=== PATIENT | female | born 1945 | race Caucasian/White ===

== ENCOUNTER 2023-05-31 06:28 | Day surgery (SDC) | payer BC, MEDICARE ==
[2023-05-31] VITALS (17 sets, daily range): BP systolic 142–177; BP diastolic 70–93; PULSE 73–94; RESP 12–16; TEMP 98.5; O2SAT 91–99
[~2023-05-31] VITALS: Ht 165.1 cm; Wt 98.3 kg
[2023-05-31] MEDS ORDERED: normal saline 1000ml 1,000 ML IV PRN (06:45)
[2023-05-31] MEDS ORDERED: AMLO5TAB16 PO (07:39)
[2023-05-31] MEDS ORDERED: ESTR10TA9 (07:39)
[2023-05-31] MEDS ORDERED: OXYB5TAB17 PO (07:39)
[2023-05-31] MEDS ORDERED: METO-411 PO (07:39)
[2023-05-31] MEDS ORDERED: ESZO1TAB13 PO (07:39)
[2023-05-31] MEDS ORDERED: IBAN150T21 PO (07:45)
[2023-05-31] MEDS ORDERED: NITR100C11 PO (07:45)
[2023-05-31] MEDS ORDERED: PANT40TA54 PO (07:45)
[2023-05-31] MEDS ORDERED: OLME40TA18 PO (07:45)
[2023-05-31] MEDS ORDERED: ESCI20TA39 PO (07:45)
[2023-05-31] MEDS ORDERED: LOTE5DRO (07:45)
[2023-05-31 08:26] LABS: BASOPHILS % (AUTO) 0.8 % (0-1); EOSINOPHILS # (AUTO) 0.2 X10'3 (0-0.9); EOSINOPHILS % (AUTO) 5.2 % (0-6); HEMATOCRIT 33.6 % (35.0-45.0); HEMOGLOBIN 11.1 g/dl (12.0-16.0); LYMPHOCYTES # (AUTO) 1.7 X10'3 (1.1-4.8); LYMPHOCYTES % (AUTO) 36.6 % (21-51); MEAN CORPUSCULAR HEMOGLOBIN 28.9 PG (27.0-31.0); MEAN CORPUSCULAR HGB CONC 32.9 g/dL (33.0-36.5); MEAN CORPUSCULAR VOLUME 87.9 FL (78-98); MEAN PLATELET VOLUME 8.6 FL (7.4-10.4); MONOCYTES # (AUTO) 0.5 X10'3 (0-0.9); MONOCYTES % (AUTO) 11.6 % (2-12); NEUTROPHILS # (AUTO) 2.1 X10'3 (1.8-7.7); NEUTROPHILS % (AUTO) 45.8 % (42-75); PLATELET COUNT 196 X10'3 (140-440); RED BLOOD COUNT 3.83 X10'6 (4.20-5.60); RED CELL DISTRIBUTION WIDTH 18.5 % (11.5-14.5); WHITE BLOOD COUNT 4.6 X10'3 (4.5-11.0)
[2023-05-31 08:28] LABS: PROTHROMBIN TIME 11.1 SECONDS (9.0-12.0)
[2023-05-31 08:43] LABS: ALBUMIN 3.2 G/DL (3.4-5.0); ANION GAP 8 (8-16); BLOOD UREA NITROGEN 25 MG/DL (7-18); BUN/CREATININE RATIO 39.7 (10.0-20.0); CALCIUM 9.2 MG/DL (8.5-10.1); CHLORIDE 105 MMOL/L (99-107); CREATININE 0.63 MG/DL (0.40-0.90); GLUCOSE 96 MG/DL (70-104); POTASSIUM 3.1 MMOL/L (3.5-5.1); SODIUM 142 MMOL/L (135-145); TOTAL CARBON DIOXIDE 28.7 MMOL/L (24-32); eCRCL 67 ML/MIN; eGFR > 90 ML/MIN
[2023-05-31] MEDS ORDERED: fentaNYL/PF 50MCG/1 ML 2ML syringe ONE (09:48)
[2023-05-31] MEDS ORDERED: midazolam 1 mg/ML 2ml injection ONE (09:48)
[2023-05-31] MEDS ORDERED: gelatin sponge, absorbable (Gelfoam 12-7MM) sponge TP ONE (10:25)
== END 2023-05-31 15:00 | disposition home or self-care (01) ==
LOC: SSTAY O 06:28
PROVIDERS: ATTEND Radiology Vascular & Interventional Radiology
DX: D49.512 Neoplasm of unspecified behavior of left kidney (principal); N28.89 Other specified disorders of kidney and ureter; I10 Essential (primary) hypertension; G47.30 Sleep apnea, unspecified; M19.90 Unspecified osteoarthritis, unspecified site; Z87.440 Personal history of urinary (tract) infections; Z87.442 Personal history of urinary calculi; Z87.891 Personal history of nicotine dependence; Z79.899 Other long term (current) drug therapy; Z90.710 Acquired absence of both cervix and uterus; Z98.890 Other specified postprocedural states; Z88.0 Allergy status to penicillin; Z88.5 Allergy status to narcotic agent
CPT/HCPCS: 36415; 50200; 77012; 80048; 85025; 85610; 99152; 99153; J2250; J3010; J7030; A4615

== ENCOUNTER 2025-03-12 11:07 | Inpatient (IN) | payer OTHER, MEDICARE, BC ==
[~2025-03-12] VITALS: Ht 162.6 cm; Wt 105.9 kg
[2025-03-12] VITALS (14 sets, daily range): BP systolic 102–138; BP diastolic 49–71; PULSE 64–79; RESP 14–21; TEMP 98.2–99.2; O2SAT 93–100
[~2025-03-12 11:07] MED LIST: AMLO5TAB16 PO; ESCI20TA39 PO; ESTR10TA9; ESZO1TAB13 PO; IBAN150T21 PO; LOTE5DRO; METO-411 PO; NITR100C11 PO; OLME40TA18 PO; OXYB5TAB21 PO; PANT40TA54 PO
--- NOTE | 2025-03-12 12:49 | Physician Documentation ---
History of Present Illness General Chief Complaint: See Chief Complaint Stated Complaint: POSS GI BLEED Time Seen by MD: 11:25 History of Present Illness Initial Comments This is a 79-year-old female who currently resides at [facility], was dropped off to us by medical transport in front of the emergency department. She tells me that she is here for EGD and she has an appointment at 11:00 a.m.. It is currently 1243. We have contacted [facility] the facility and turns out that patient can not have the EGD done on an outpatient basis due to insurance reasons. Apparently the patient had an appointment for outpatient EGD which was canceled due to insurance non coverage. Therefore they sent her here to be admitted and have EGD done on the inpatient basis. At the time of my examination patient has not no new somatic complaints. Records from the outside facility reviewed. The patient was sent with the history and physical examination note from [facility]. According to that note patient is a 79-year-old female with a past medical history of heart failure with a reduced ejection fraction with a EF of 40-45%, history of hypotension, hyperlipidemia, AFib with a Eliquis, depression, obesity, chronic hypoxic respiratory failure and supposed to be on 2 L with a baseline, presented for evaluation of generalized weakness. At the time of presentation to [facility] 02/18/2025, the patient has been feeling weak for three days. She presented to the ER because she was not able to get off the toilet. The patient has a chronic lymphedema. Her workup of the time showed anemia with hemoglobin of 7.8. BNP was elevated at 3700. Medication Reconciliation Allergies: Coded Allergies: Penicillins (Verified Allergy, Unknown, 05/31/23) codeine (Verified Allergy, Unknown, 05/31/23) Scheduled Amlodipine Besylate (Amlodipine Besylate), 1 TAB PO DAILY, (Reported) Escitalopram Oxalate (Escitalopram Oxalate), 1 TAB PO DAILY, (Reported) Eszopiclone (Eszopiclone), 1 TAB PO HS, (Reported) Ibandronate Sodium (Ibandronate Sodium), 1 TAB PO Q30D, (Reported) Metoprolol Succinate (Metoprolol Succinate), 1 TAB PO DAILY, (Reported) Nitrofurantoin/Nitrofuran Mac (Nitrofurantoin [place]-Mcr 100 Mg), 1 CAP PO DAILY, (Reported) Olmesartan Medoxomil (Olmesartan Medoxomil), 1 TAB PO DAILY, (Reported) Oxybutynin Chloride (Oxybutynin Chloride), 1 TAB PO BID, (Reported) Pantoprazole Sodium (Pantoprazole Sodium), 1 TAB PO DAILY, (Reported) Miscellaneous Medications Estradiol (Estradiol), (Reported) Loteprednol Etabonate (Loteprednol Etabonate), (Reported) Review of Systems ROS 10 point review of systems was performed and unless noted above in HPI is negative for acute process/complaint. Physical Exam Physical Exam Vital Signs: Temperature: 98.3, Source: Oral, Heart Rate: 65, Respiratory Rate: 16, BP: 105/45, Pulse Oximetry: 99, Weight: 105.910 Oxygen Flow Rate: 2.0 Physical Exam GENERAL: Awake, alert, oriented, GCS 15, no apparent distress, pale and chron ically ill appearing, answers questions, follows commands appropriately. Examined in bed 14. HEENT: Atraumatic, normocephalic, pupils equal, extraocular muscles intact, sclerae anicteric, mucus membranes moist, oropharynx is clear, no stridor. NECK: supple, full active range of motion, trachea midline, no thyromegaly, no lymphadenopathy, no JVD. CARDIOVASCULAR: Irregularly irregular rate/rhythm, no murmurs/gallops/rubs, Pulses are 2+ in all extremities and symmetric. Capillary refill less than 2 seconds. PULMONARY: Nonlabored, for air movement ,no respiratory distress, speaking in full sentences, markedly decreased breath sounds on the left side, no wheezing, no ronchi, right rales, no accessory muscle use. GASTROINTESTINAL: Soft, non-tender, non-distended, normal active bowel sounds, no organomegaly, no pulsatile masses, no CVA tenderness. NEUROLOGIC: Lucid with normal mental status. Normal facial symmetry. Moves all extremities symmetrically and with purpose. No truncal ataxia. Speech is fluid without evidence of dysarthria or aphasia, no focal deficits appreciated. MUSCULOSKELETAL: There is full range of motion of all extremities. There is no joint pain or joint swelling or joint erythema. There is no muscle pain or tenderness or swelling. EXTREMITIES: warm, well-perfused, no cyanosis, no clubbing, no edema, no acute deformities. Skin: warm, dry, no rashes or lesions, no jaundice, no petechiae orpurpura. No ecchymosis. PSYCHIATRIC: Normal affect, normal insight, normal concentration. Focused exam: [] Progress Results/Orders Results/Orders Orders - CAMILO WILLIS DO Chest,Single View (03/12/25 12:50) Monitor (03/12/25 12:50) Saline Lock (03/12/25 12:50) Hs Troponin I W Calculations (03/12/25 14:50) Culture Blood (03/12/25 13:40) Completed Orders - CAMILO WILLIS DO Electrocardiogram (03/12/25 12:50) Cbc/Diff (03/12/25 12:50) Pt Inr (03/12/25 12:50) PTT (03/12/25 12:50) Chest,Single View (03/12/25 12:50) PBNP (03/12/25 12:50) MG (03/12/25 12:50) CMP (03/12/25 12:50) Hs Troponin I W Calculations (03/12/25 12:50) C-Reactive Protein (03/12/25 12:57) ESR (03/12/25 12:57) Lacticsepsis (03/12/25 13:40) Man Diff (03/12/25 13:04) Procalcitonin (03/12/25 14:10) Vital Signs 03/12/25 03/12/25 03/12/25 11:13 13:21 13:27 Temp 98.3 Pulse 65 65 Resp 16 15 B/P (MAP) 105/45 118/52 (74) Pulse Ox 99 97 96 O2 Delivery Nasal Cannula* O2 Flow Rate 2.0 2 2.0 FiO2 28 Laboratory Tests Test 03/12/25 13:04 White Blood Count 3.9 L Red Blood Count 3.21 L Hemoglobin 8.7 L Hematocrit 27.1 L Mean Corpuscular Volume 84.2 Mean Corpuscular Hemoglobin 27.0 Mean Corpuscular Hemoglobin Concent 32.1 L Red Cell Distribution Width 17.6 H Platelet Count 84 L Mean Platelet Volume 9.7 Neutrophils (%) (Auto) 65.0 Lymphocytes (%) (Auto) 16.7 L Monocytes (%) (Auto) 16.0 H Eosinophils (%) (Auto) 1.6 Basophils (%) (Auto) 0.7 Neutrophils # (Auto) 2.5 Lymphocytes # (Auto) 0.6 L Monocytes # (Auto) 0.6 Eosinophils # (Auto) 0.1 Basophils # (Auto) 0.0 CBC Comment Differential Total Cells Counted 100 Neutrophils % (Manual) 62.0 Lymphocytes % (Manual) 19.0 L Monocytes % (Manual) 18.0 H Eosinophils % (Manual) 1.0 Platelet Estimate Decreased Red Blood Cell Morphology Perf Hypochromasia Basophilic Stippling Anisocytosis 1+ Erythrocyte Sedimentation Rate 32 H Prothrombin Time 12.4 H INR International Normalized Ratio 1.2 Activated Partial Thromboplast Time 27 Coagulation Comments Sodium Level 147 H Potassium Level 4.0 Chloride Level 107 Carbon Dioxide Level 35.0 H Anion Gap 5 L Blood Urea Nitrogen 62 H Creatinine 1.04 H Estimated GFR/1.73 m2 51 BUN/Creatinine Ratio 59.6 H Glucose Level 90 Lactic Acid Level 0.9 Calcium Level 8.6 Magnesium Level 2.2 Total Bilirubin 1.0 Aspartate Amino Transf (AST/SGOT) 14 Alanine Aminotransferase (ALT/SGPT) 15 Alkaline Phosphatase 57 Troponin I High Sensitivity 67 *H C-Reactive Protein 0.58 H Pro-B-Type Natriuretic Peptide 5471 H Total Protein 6.6 Albumin 2.8 L Globulin 3.8 Albumin/Globulin Ratio 0.7 L Procalcitonin < 0.05 Chemistry Comments Medical Decision Making Additional information obtaine: old records Findings Facility Status: ED [facility], [facility] process The plan was discussed with the patient, who demonstrates clear understanding of the plan and is in agreement with the plan unless otherwise noted in the chart. All questions have been answered, all concerns were addressed unless otherwise documented. I was available throughout their ED stay for frequent reassessment and questions. Differential Diagnoses (considered and possible or likely): [Anemia secondary to chronic disease versus anemia secondary to GI bleed the, CHF exacerbation, hypoxia-chronic, less likely ACS, less likely dehydration, less likely electrolyte derangement.] ??Differential Diagnoses (considered and unlikely, not requiring evaluation currently): [No evidence of trauma lateralizing signs] MDM Data Please see HPI for the following: Independent Historians and external Records Review. Historian: [Patient] Independent Historians: ?[Record review] Medication Management: [Reviewed medication list] Social History and determinants: [Reviewed] Please see the body of the note for the following: Any independent interpretations of ECG, imaging studies. All vitals signs/haemodynamics, ordered tests were independently reviewed and interpreted by myself. Nursing triage complaint and vitals reviewed, additional nursing notes were reviewed as available and I agree unless otherwise noted or documented in contradiction in the chart Vital Signs: Independently reviewed Labs: Independently interpreted Imaging: Independently interpreted Old Medical Records: Independently reviewed, see HPI for relevant summary and information Pulse Oximetry: [97% on baseline 2 L] interpreted as [baseline] by me [Manager Spanish: [Regular Rate, Regular rhythm, no ectopy, NSR] reviewed and interpreted by me] Additionally notably showing: [Hemodynamics reviewed. The patient is doing well on her baseline 2 L nasal cannula. There was no evidence of hypoxia, there was not evidence of tachycardia or hypotension. Her blood pressure is however are soft. There is a leukopenia of 3.9, no neutrophilic predominance. Anemia of 8.7, thrombocytopenia of 84. ESR is elevated. Coagulation panel is unremarkable. Metabolic panel notable for elevated troponin, elevated BNP concerning for CHF exacerbation as well as BUN creatinine ratio of almost 60 concerning for upper GI bleed. Procalcitonin is normal. Lactic acid is normal. Chest x-ray is notable for an entire left lung white out.] Tests considered but not ordered include: [Advanced imaging, echocardiogram, can be done on an inpatient basis] Social Determinants of Health Impact: Patient was evaluated in [facility] [place] to healthcare due to below par ratio of patient to medical providers. [] Comorbid Conditions Impacting Present Evaluation and Care/Treatment: [Multiple including known CHF, known anemia] Management Discussions with other Healthcare Providers: [Hospitalist regarding admission] Treatment and Disposition Medication Management (Given or considered): [Antibiotics]. See EMR for details Consideration for Hospitalization/Escalation/Deescalation of Care: Admission for observation has been considered, is necessary for further management of her left lung white out ?ED Course:?[Date: Mar 12, 2025 Time: 15:02 the GI crew showed up to take patient for EGD. ] ?Shared decision making:?[] Code status:?FULL Please see the full Electronic Medical Record for full details of nursing documentation, medications list, other records of complete past medical history and conditions, vital signs, laboratory studies, and any radiologic study interpretations by radiologists. Portions of this note were completed using [employer] dictation software and as a result there may exist minor errors in spelling. I have reviewed elements of past family and social history and agree as included in note. Differential Diagnosis See the body of main note Departure Disposition: ADMITTED INPATIENT Admitted to Inpatient Unit: to hospitalist Impression: Primary Impression: Upper GI bleed Additional Impressions: Anemia Pneumonia involving left lung Condition: Guarded Referrals: NO PRIMARY CARE PROVIDER (PCP) Signature Scribe Signature: No scribe Attestation: Date: Mar 12, 2025 Time: 12:49 This note accurately reflects clinical decisions, work performed by myself, DO LAZARO Shipman NICHOLAS M DO Mar 12, 2025 12:49
--- NOTE | 2025-03-12 13:06 | ELECTROCARDIOGRAPH REPORT ---
[facility] Test Date: 2025-03-12 Test Time: 13:04:14 Pat Name: PAMELA GIORDANO Department: [facility]-ER Patient ID: [facility]-[id number] Room: [place] [address] Gender: F Structural Steel Painter: : 1945 Requested By: CAMILO WILLIS Order Number: [id number] Reading MD: Dr. Kye Driver Measurements Intervals [place] Rate: 78 P: 0 DE: 0 QRS: -54 QRSD: 174 T: 83 QT: 451 QTc: 514 Interpretive Statements Atrial fibrillation RBBB and LAFB Electronically Signed On 03-13-2025 18:48:[address] Kye Driver Please click the below link to view image of tracing.
--- NOTE | 2025-03-12 13:16 | RADIOLOGY REPORT ---
DI CHEST,SINGLE VIEW, HISTORY: Weakness COMPARISON: None None TECHNICAL DATA: 1 view of the chest was obtained. FINDINGS: Lines and tubes: None Cardiomediastinal silhouette: Indistinct. Pulmonary vasculature: Prominent Lung expansion: normal Lung airspace: Complete opacification of the left hemithorax. Lung interstitium: normal Pleura: Bilateral pleural effusions. Pneumothorax: no Bones: Unremarkable Other: no IMPRESSION: Complete opacification of the left hemithorax. Bilateral pleural effusions.
[2025-03-12 13:30] LABS: APTT 27 SECONDS (22-32); INR 1.2 INR
[2025-03-12 13:40] LABS: MEAN PLATELET VOLUME 9.7 FL (7.4-10.4); RED CELL DISTRIBUTION WIDTH 17.6 % (11.5-14.5)
[2025-03-12 13:56] LABS: CREATININE 1.04 MG/DL (0.40-0.90); PRO BRAIN NATRIURETIC PEPTIDE 5471 PG/ML (0-450); TOTAL CARBON DIOXIDE 35.0 MMOL/L (24-32); eCRCL 38 ML/MIN; eGFR 51 ML/MIN
[2025-03-12 14:03] LABS: EOSINOPHILS % (MANUAL) 1.0 % (0-6); LYMPHOCYTES % (MANUAL) 19.0 % (21-51); MONOCYTES % (MANUAL) 18.0 % (2-12); NEUTROPHILS % (MANUAL) 62.0 % (42-75); PLATELET ESTIMATE DECREASED
[2025-03-12] MEDS ORDERED: magnesium sulf-water 2g/50mL 50 ML IV PRN (15:30)
[2025-03-12] MEDS ORDERED: potassium Cl 40MEQ/1/2NS 520ml 520 ML IV PRN (15:30)
[2025-03-12] MEDS ORDERED: bisacodyl 10mg suppository rectal RC PRN (15:30)
[2025-03-12] MEDS ORDERED: potassium Cl 20 mEq SR tablet PO PRN (15:30)
[2025-03-12] MEDS ORDERED: magnesium Cl slow-release 64mg tablet PO PRN (15:30)
[2025-03-12] MEDS ORDERED: magnesium sulf-water 4G/100mL 100 ML IV PRN (15:30)
[2025-03-12] MEDS ORDERED: ondansetron/PF 4mg/2ml inj IV PRN (15:30)
[2025-03-12] MEDS ORDERED: magnesium hydroxide 30ml (MOM) UD suspension PO PRN (15:30)
[2025-03-12] MEDS ORDERED: propofol inj 20 ML IV ONE (16:01)
[2025-03-12] MEDS: levoFLOXACIN-Levaquin 750MG/D5 150 ML IV ONE (18:50)
--- NOTE | 2025-03-12 19:13 | HISTORY AND PHYSICAL ---
History & Physical Providers to CC ~ History of Present Illness Reason for Admit\\Complaint: GI bleeding History of Present Illness This is a 79-year-old female who currently resides at [facility] nursing [facility], was dropped off by medical transport in front of the emergency department . As per ER records " We have contacted [facility] the facility and turns out that patient can not have the EGD done on an outpatient basis due to insurance reasons. Apparently the patient had an appointment for outpatient EGD which was canceled due to insurance non coverage. Therefore they sent her here to be admitted and have EGD done on the inpatient basis. " I evaluated the patient in recovery room after EGD. Dr. Smallwood did EGD for her. And as per patient GI specialist mentioned nothing significant they found in EGD in she will plan for colonoscopy in a.m. patient mentioned off and on she bleeds from her hemorrhoids and she also has heartburn history. Patient denied any nausea vomiting or abdominal pain.Further workup done in ER x-ray chest showed Complete opacification of the left hemithorax. Bilateral pleural effusions. Patient use 2 L of oxygen at home. Patient denied any worsening of her breathing. No chest pain. Hospitalist service contacted for admission and further management Allergies: Coded Allergies: Penicillins (Verified Allergy, Unknown, 05/31/23) codeine (Verified Allergy, Unknown, 05/31/23) Home Medications Home Medications Active Reported Escitalopram Oxalate 20 Mg Tablet 1 Tab PO DAILY Pantoprazole Sodium 40 Mg Tablet.dr 1 Tab PO DAILY Loteprednol Etabonate 0.5 % Drops.susp Nitrofurantoin [place]-Mcr 100 Mg (Nitrofurantoin/Nitrofuran Mac) 100 Mg Capsule 1 Cap PO DAILY Ibandronate Sodium 150 Mg Tablet 1 Tab PO Q30D Olmesartan Medoxomil 40 Mg Tablet 1 Tab PO DAILY Eszopiclone 1 Mg Tablet 1 Tab PO HS Metoprolol Succinate 100 Mg Tab.sr.24h 1 Tab PO DAILY Amlodipine Besylate 5 Mg Tablet 1 Tab PO DAILY Oxybutynin Chloride 5 Mg Tablet 1 Tab PO BID Estradiol 10 Mcg Tablet Past Medical History Past Medical History Congestive heart failure EF 40-45%, AFib rate controlled, chronic respiratory failure on 2 L at home, chronic lymphedema Past Surgical History Surgical History Comment No pertinent surgical history Past Social History Social History Comment Patient lives with her , [facility], denies use of any tobacco alcohol or recreational drugs. ROS ROS Review of system as mentioned above in HPI rest of the review of system unremarkable Exam Vitals: Vital Signs Date Time Temp Pulse Resp B/P (MAP) Pulse Ox O2 Delivery O2 Flow Rate FiO2 03/12/25 18:12 98.2 69 17 138/63 (88) 97 Nasal Cannula 2.0 03/12/25 13:21 28 General: General-patient not in any acute distress, alert awake oriented, chronically ill-appearing, age-appropriate, obese, looks comfortable HEENT-atraumatic normocephalic, neck supple without elevated JVD, no thyromegaly or carotid bruit. No lymphadenopathy bilaterally. Eyes-no icterus or pallor seen in eyes Chest-clear to auscultation over right lung unable to hear any lung sounds over left lung. breathing nonlabored no tachypnea, no wheezing, no crepitation, no crackles. Heart-S1-S2 normal, regular heart rate no murmur Abdomen bowel sounds positive on auscultation, soft nondistended nontender no guarding, no rigidity Skin no active skin rash Neurology-grossly intact, nonfocal alert awake oriented Extremity- no pedal edema able to move all 4 extremities, chronic lymphedema present bilaterally Psychiatry - patient is not confused or agitated cooperated during physical examination Diagnostic Data Last Recorded Lab Results: 03/12/25 1304 03/12/25 1304 Diagnostic Data: Laboratory Tests Test 03/12/25 13:04 Prothrombin Time 12.4 SECONDS (9.0-12.0) H INR International Normalized Ratio 1.2 INR Activated Partial Thromboplast Time 27 SECONDS (22-32) Coagulation Comments Advance Care Planning Advanced Care plannin - 30 Minutes Additional Plan Patient is 79-year-old female with known history Congestive heart failure EF 40- 45%, AFib rate controlled, chronic respiratory failure on 2 L at home, chronic lymphedema. Patient is admitted for possible GI bleeding, left lung pneumonia, acute on chronic respiratory failure. We will continue oxygen therapy. Patient is started on IV diuretic, IV antibiotics for left lung pneumonia. Started on Protonix drip for GI bleeding. Stool occult blood testing ordered. GI specialist Dr. Smallwood taking care of patient further management as recommended by her regarding colonoscopy. We will continue to monitor patient's labs and vitals closely . Needs physical therapy evaluation before discharge . Code status discussed with the patient patient wishes DNR/DNI . Time spent in discussing code status 16 minutes. We will do home medication reconciliation once updated in electronic by nursing staff or pharmacist. Further management depending on response to treatment and as per recommendation by GI specialist ,Dr Smallwood. I will continue to follow patient in a.m. Date of Service: Mar 12, 2025 Billing Provider: JOSE CHOE MD Common Visit Codes: [id number] INP/OBS CARE (HIGH) Secondary Visit Codes: 09750-[id number] CARE PLAN 30 MINUTES JOSE CHOE MD Mar 12, 2025 19:13
[2025-03-12] MEDS: K and/or MAG REPLACEMENT MC SCH (20:00)
[2025-03-12] MEDS: heparin, porcine 5000 units/ml vial SQ SCH (20:00)
[2025-03-12] MEDS: pantoprazole 40MG/NS 100ML BAG 100 ML IV SCH (21:00)
[2025-03-12 23:08] LABS: % IRON SATURATION 9 % (11-46)
[2025-03-13] VITALS (14 sets, daily range): BP systolic 106–125; BP diastolic 46–66; PULSE 65–86; RESP 16–20; TEMP 96.6–98.7; O2SAT 88–98
[2025-03-13] MEDS: albuterol 2.5 MG/3 ML nebule NEB PRN (01:43)
[2025-03-13 05:21] LABS: MEAN PLATELET VOLUME 9.9 FL (7.4-10.4); RED CELL DISTRIBUTION WIDTH 17.6 % (11.5-14.5)
[2025-03-13 05:36] LABS: CREATININE 0.92 MG/DL (0.40-0.90); TOTAL CARBON DIOXIDE 34.6 MMOL/L (24-32); eCRCL 43 ML/MIN; eGFR 59 ML/MIN
[2025-03-13] MEDS: levoFLOXACIN-Levaquin 500mg/D5 100 ML IV SCH (08:15)
[2025-03-13] MEDS: potassium Cl 20 mEq SR tablet PO PRN (08:18)
[2025-03-13] MEDS ORDERED: SACU1TAB PO (15:53)
[2025-03-13] MEDS ORDERED: SPIR25TA5 PO (15:53)
[2025-03-13] MEDS ORDERED: FURO40TA4 PO (15:53)
[2025-03-13] MEDS ORDERED: APIX5TAB3 PO (15:53)
[2025-03-13] MEDS: metoprolol succinate 25mg (24-HOUR) SR. Tablet PO SCH (16:48)
--- NOTE | 2025-03-13 20:05 | PROGRESS NOTE ---
Daily Progress Note Providers to CC ~ Antibiotic Timeout Antibiotic Ordered?: Yes Subjective Patient was seen in her room in presence of nursing staff Kirstin galeano. As per nursing staff as per GI lab there is no plan for colonoscopy for her. Patient is started on heart healthy diet. Old record from [facility] reviewed. X- ray done on February 18, 2025 diminished lung volumes superior mediastinal contours are within normal range background of pulmonary congestion bilateral pleural effusion and retrocardiac patchy opacity no pneumothorax. Home medication reconciliation done for patient's home medication. Objective Vital Signs Date Time Temp Pulse Resp B/P (MAP) Pulse Ox O2 Delivery O2 Flow Rate FiO2 03/13/25 18:00 96.6 71 16 125/59 (81) 97 Nasal Cannula 2.0 03/13/25 17:50 32 Result Diagram: 03/13/2543003/13/25430 General-patient not in any acute distress, alert awake oriented, chronically ill-appearing, age-appropriate, obese, looks comfortable HEENT-atraumatic normocephalic, neck supple without elevated JVD, no thyromegaly or carotid bruit. No lymphadenopathy bilaterally. Eyes-no icterus or pallor seen in eyes Chest-coarse breath sounds to auscultation over right lung . improved lung sounds over left lung. breathing nonlabored no tachypnea, no wheezing, no crepitation, no crackles. Heart-S1-S2 normal, regular heart rate no murmur Abdomen bowel sounds positive on auscultation, soft nondistended nontender no guarding, no rigidity Skin no active skin rash Neurology-grossly intact, nonfocal alert awake oriented Extremity- no pedal edema able to move all 4 extremities, chronic lymphedema present bilaterally Psychiatry - patient is not confused or agitated cooperated during physical examination Coagulation Studies Laboratory Tests Test 03/12/25 13:04 Prothrombin Time 12.4 SECONDS (9.0-12.0) H INR International Normalized Ratio 1.2 INR Activated Partial Thromboplast Time 27 SECONDS (22-32) Coagulation Comments Problem\Assessment\Plan Patient is 79-year-old female with known history Congestive heart failure EF 40- 45%, AFib rate controlled, chronic respiratory failure on 2 L at home, chronic lymphedema. Patient is admitted for possible GI bleeding, left lung pneumonia, acute on chronic respiratory failure. # possible GI bleeding, Anemia - Started on Protonix drip for GI bleeding. Stool occult blood testing ordered. GI specialist Dr. Smallwood taking care of patient further management As per EGD result-normal esophagus mild erythema present in gastric antrum normal duodenal bulb. No other significant findings. PO pantoprazole started # left lung pneumonia, acute on chronic respiratory failure.- We will continue oxygen therapy. Patient is started on IV diuretic, IV antibiotics for left lung pneumonia. X-ray done on February 18, 2025 diminished lung volumes superior mediastinal contours are within normal range background of pulmonary congestion bilateral pleural effusion and retrocardiac patchy opacity no pneumothorax. All records from [facility] visit dated February 18, 2025 February 21 2025 reviewed # Code status discussed with the patient patient wishes DNR/DNI We will continue to monitor patient's labs and vitals closely . Needs physical therapy evaluation before discharge .home medication reconciliation updated in EHR . Further management depending on response to treatment and as per recommendation by GI specialist ,Dr Smallwood. I will continue to follow patient in a.m. Patient's current condition is guarded we will continue to follow patient in a.m. Date of Service: Mar 13, 2025 Billing Provider: JOSE CHOE MD Common Visit Codes: [id number] INP/OBS CARE(HIGH) JOSE CHOE MD Mar 13, 2025 20:05
[2025-03-13] MEDS: pantoprazole 40mg Tablet.DR PO SCH (20:19)
[2025-03-13] MEDS ORDERED: non-formulary drug (Eszopiclone 1 TAB) PO SCH (21:00)
[2025-03-14 06:00] VITALS: BP 115/51; PULSE 71; RESP 17; TEMP 98.1; O2SAT 97
[2025-03-14 06:23] LABS: MEAN PLATELET VOLUME 10.2 FL (7.4-10.4); RED CELL DISTRIBUTION WIDTH 18.0 % (11.5-14.5)
[2025-03-14 06:40] LABS: CREATININE 1.04 MG/DL (0.40-0.90); TOTAL CARBON DIOXIDE 35.5 MMOL/L (24-32); eCRCL 38 ML/MIN; eGFR 51 ML/MIN
[2025-03-14 07:00] VITALS: RESP 17; O2SAT 98
[2025-03-14 08:54] LABS: EOSINOPHILS % (MANUAL) 2.0 % (0-6); LYMPHOCYTES % (MANUAL) 27.0 % (21-51); METAMYLEOCYTES% (MANUAL) 1.0 % (0-0); MONOCYTES % (MANUAL) 24.0 % (2-12); NEUTROPHILS % (MANUAL) 46.0 % (42-75); PLATELET ESTIMATE DECREASED
[2025-03-14 08:55] LABS: ELLIPTOCYTES FEW
--- NOTE | 2025-03-14 09:29 | RADIOLOGY REPORT ---
EXAM: DI CHEST,SINGLE VIEW Indication: monitor changes Technique: Single frontal view of the chest was obtained Comparison: DI CHEST,SINGLE VIEW on DOS: 03/12/25, DI CHEST,SINGLE VIEW on DOS: 03/12/25 FINDINGS: Lines and tubes: None Cardiomediastinal silhouette: Indistinct. Pulmonary vasculature: Prominent Lung expansion: normal Lung airspace: Complete opacification of the left hemithorax. Lung interstitium: normal Pleura: Bilateral pleural effusions. Pneumothorax: no Bones: Unremarkable Other: no IMPRESSION: No significant change compared to prior exam.
[2025-03-14] MEDS: levoFLOXACIN-Levaquin 250mg/D5 50 ML IV SCH (09:30)
[2025-03-14 09:44] LABS: OCCULT BLOOD STOOL POSITIVE (Neg)
[2025-03-14] MEDS: ESCITALOPRAM 10 mg tablet 10 MG TABLET PO SCH (09:44)
[2025-03-14] MEDS: nitrofuran monohydrate/nitrofuran macrocrysal 100 MG (MacroBID) capsule PO SCH (09:44)
[2025-03-14 10:00] VITALS: BP 104/56; PULSE 63; RESP 17; TEMP 98.2; O2SAT 100
--- NOTE | 2025-03-14 12:31 | CONSULTATION REPORT - RESIDENT ---
Consult Providers to CC Resident Creating Document: REYMUNDO GILLESPIEMALIERNESTO LUIS CC: ERNESTO DALLAS MD History of Present Illness Reason for Admit\Complaint: Blood per rectum History of Present Illness This is a 79-year-old female who currently resides at [facility] who was brought to the ED due to blood per rectum. Patient does have a history of hemorrhoids, and she complained of intermittent blood per rectum. She did have a colonoscopy on the last five years which was normal, and she was trying to be scheduled for an EGD thorugh her PCP. Due to persistent symptoms, patient was brought to our facility for further evaluation and management. In the ED, patient was found anemic and an occult blood in stool was positive. Allergies: Coded Allergies: Penicillins (Verified Allergy, Unknown, 05/31/23) codeine (Verified Allergy, Unknown, 05/31/23) Home Medications Home Medications Active Reported Eliquis (Apixaban) 5 Mg Tablet 1 Tab PO BID Furosemide 40 Mg Tablet 1 Tab PO DAILY Spironolactone 25 Mg Tablet 1 Tab PO DAILY Entresto 24 mg-26 mg Tablet (Sacubitril/Valsartan) 24 Mg-26 Mg Tablet 1 Tab PO BID Escitalopram Oxalate 20 Mg Tablet 1 Tab PO DAILY Pantoprazole Sodium 40 Mg Tablet.dr 1 Tab PO DAILY Loteprednol Etabonate 0.5 % Drops.susp Nitrofurantoin [place]-Mcr 100 Mg (Nitrofurantoin/Nitrofuran Mac) 100 Mg Capsule 1 Cap PO DAILY Ibandronate Sodium 150 Mg Tablet 1 Tab PO Q30D Olmesartan Medoxomil 40 Mg Tablet 1 Tab PO DAILY Eszopiclone 1 Mg Tablet 1 Tab PO HS Metoprolol Succinate 100 Mg Tab.sr.24h 1 Tab PO DAILY Amlodipine Besylate 5 Mg Tablet 1 Tab PO DAILY Oxybutynin Chloride 5 Mg Tablet 1 Tab PO BID Estradiol 10 Mcg Tablet Past Medical History Past Medical History Congestive heart failure EF 40-45%, AFib rate controlled, chronic respiratory failure on 2 L at home, chronic lymphedema Past Surgical History Surgical History Comment None Past Social History Social History Comment Patient lives with her , able to ambulate in [facility] rehab with PT /OT, denies use of any tobacco alcohol or recreational drugs. ROS ROS All systems were reviewed and found negative except for pertinent positives mentioned in HPI Exam Vitals: Vital Signs Date Time Temp Pulse Resp B/P (MAP) Pulse Ox O2 Delivery O2 Flow Rate FiO2 03/14/25 10:00 98.2 63 17 104/56 (72) 100 Nasal Cannula 2.0 03/13/25 23:15 28 General: General: awake, alert oriented to place, time, and person HEENT: no pallor present, no icterus, moist mucous membranes Neck: No masses and tenderness Resp: Unlabored. Lungs clear to auscultation bilaterally Chest: Normal expansion Cardiovascular: tachycardic, regular rhythm, normal S1 and S2 without murmur, rub or gallop Abdomen: Soft and nontender, no organomegaly, no guarding and rigidity, bowel sounds present Neuro: No focal weakness in the upper and lower limb muscles, power of the muscles 5/5 bilateral upper and lower extremities, normal reflexes bilaterally. Cranial nerves intact Extremities: No cyanosis,clubbing or edema Skin: Warm and Dry. No lesions Psych: Normal affect and mood Diagnostic Data Last Recorded Lab Results: 03/14/25 0530 03/14/25 0530 Diagnostic Data: Laboratory Tests Test 03/12/25 13:04 Prothrombin Time 12.4 SECONDS (9.0-12.0) H INR International Normalized Ratio 1.2 INR Activated Partial Thromboplast Time 27 SECONDS (22-32) Coagulation Comments Additional Plan Gastroenterology consultation note: Patient was transferred from [facility] severe anemia. Patient does have intermittent scant blood per rectum which she has a for a long time and a colonoscopy 5 years ago was completely normal. We will perform an EGD to rule out any other source of bleeding in view of positive occult blood test. Possible etiologies include but not limited to: Peptic ulcer disease, angiodysplasia, and malignancy. Risks and benefits of EGD were discussed with the patient including bleeding and perforation, and the need for intervention if these were to occur. Patient understands and wishes to proceed. Recommendations: - Start clear liquid diet - NPO after midnight - continue IV Protonix - EGD today Other comorbidities: Pneumonia Congestive heart failure EF 40-45% AFib rate controlled Chronic lymphedema Management per hospitalist Ernesto Guerra MD Internal Medicine Resident PGY-2 Date of Service: Mar 12, 2025 Billing Provider: ERNESTO DALLAS MD, LEONARDO LUIS Mar 14, 2025 12:31
[2025-03-14 17:26] VITALS: PULSE 76; RESP 16; O2SAT 95
[2025-03-14 18:00] VITALS: BP 116/54; PULSE 66; RESP 17; TEMP 98; O2SAT 97
--- NOTE | 2025-03-14 21:06 | DISCHARGE SUMMARY ---
Discharge Summary Providers to CC ~ Discharge Summary Admission Diagnosis: Left lung pneumonia, possible GI bleeding, CHF with low EF, AFib, low BP Hospital Course DATE OF ADMISSION: March 12, 2025 DATE OF DISCHARGE:March 14, 2025 CBC testing done on March 14, 2025 WBC 3.9 hemoglobin 7.9 hematocrit 24.9 platelet count 74. Sed rate 32. Serum chemistry done on March 14, 2025 sodium 146 potassium 3.9 creatinine 1.04 GFR 51 TIBC 263 serum iron 24. Normal liver enzymes. Troponin 66, procalcitonin 0.05. Blood culture showed no growth after two days. Stool occult blood positive. CHEST,SINGLE VIEWLung airspace: Complete opacification of the left hemithorax. Bilateral pleural effusions. Discharge Diagnosis\Comment: Pneumonia involving left lung, Anemia, GI bleeding secondary to gastritis, acute on chronic respiratory failure Operations\Procedures: EGD Consultants: Dr Smallwood. Complications: None Condition on DC: Stable Discharge Summary: Patient is 79-year-old female with known history Congestive heart failure EF 40- 45%, AFib rate controlled, chronic respiratory failure on 2 L at home, chronic lymphedema. Patient is admitted for possible GI bleeding, left lung pneumonia, acute on chronic respiratory failure. # possible GI bleeding, Anemia - Started on Protonix drip for GI bleeding. Stool occult blood testing ordered. GI specialist Dr. Smallwood taking care of patient further management As per EGD result-normal esophagus mild erythema present in gastric antrum normal duodenal bulb. No other significant findings. PO pantoprazole started. GI consultation note done on March 14, 2025 reviewed Patient does have intermittent scant blood per rectum which she has a for a long time and a colonoscopy 5 years ago was completely normal. # left lung pneumonia, acute on chronic respiratory failure.- We will continue oxygen therapy. Patient is started on IV diuretic, IV antibiotics for left lung pneumonia. X-ray done on February 18, 2025 diminished lung volumes superior mediastinal contours are within normal range background of pulmonary congestion bilateral pleural effusion and retrocardiac patchy opacity no pneumothorax. All records from [facility] visit dated February 18, 2025 February 21 2025 reviewed # Code status discussed with the patient patient wishes DNR/DNI We continued to monitor patient's labs and vitals closely . she has been afebrile and getting discharged home in stable condition. Patient is seen and examined on the day of discharge. All labs, diagnostic workup and discharge plan discussed with patient and family members in detail before her discharge. All questions and queries answered to the best of my professional medical knowledge. I heard patient's concerns and address appropriately. Physical therapy recommended rehab for patient , medication reconciliation done for rehab facility recruiting manager Nataly involved in patient's discharge plan. *Problems/Diagnosis: (1) Pneumonia involving left lung Status: Acute (2) Upper GI bleed Status: Acute Total Time Spent on D/C: > 30 Minutes Date of Service: Mar 14, 2025 Billing Provider: JOSE CHOE MD Common Visit Codes: 11589-VAZ/OBS DISCH DAY >30min JOSE CHOE MD Mar 14, 2025 21:02
== END 2025-03-14 19:32 | DRG 189 ==
LOC: ER 11:08 → ED HOLD 16:58 → ORTHO 4S 17:57
PROVIDERS: ADMIT Internal Medicine; ATTEND Internal Medicine
PROC: 0DB78ZX Excision of Stomach, Pylorus, Via Natural or Artificial Opening Endoscopic, Diagnostic (ICD-10-PCS; principal; 2025-03-12 15:42)
DX: J96.21 Acute and chronic respiratory failure with hypoxia (principal); J18.9 Pneumonia, unspecified organism; K29.51 Unspecified chronic gastritis with bleeding; Z66 Do not resuscitate; I50.9 Heart failure, unspecified; I48.91 Unspecified atrial fibrillation; F32.A Depression, unspecified; D64.9 Anemia, unspecified; E78.5 Hyperlipidemia, unspecified; K31.89 Other diseases of stomach and duodenum; I89.0 Lymphedema, not elsewhere classified; Z88.0 Allergy status to penicillin; Z88.5 Allergy status to narcotic agent; Z79.899 Other long term (current) drug therapy
CPT/HCPCS: 36415; 43239; 71045; 80053; 82272; 83540; 83550; 83605; 83735; 83880; 84145; 84484; 85007; 85025; 85610; 85651; 85730; 86140; 87040; 87081; 93005; 94640; 94664; 94668; 94760; 96365; 97161; 97530; 99285; A4620; A6212; A6213; A6223; A6446; G0378; J1938; J1956; J2470; J2704; J7120